=== PATIENT | male | born 1940 | race Caucasian/White ===

== ENCOUNTER 2020-05-11 13:11 | Outpatient (CLI) | payer MEDICARE, SELFPAY ==
[2020-05-11 13:34] LABS: Basophils Absolute Auto 0.1 K/mm3 (0.0-0.1); Basophils Percent Auto 0.7 % (0.2-1.2); Eosinophils Absolute Auto 0.2 K/mm3 (0-0.3); Eosinophils Percent Auto 2.7 % (0-4.4); Hematocrit 33.4 % (42.0-52.0); Hemoglobin 10.8 g/dL (14.0-18.0); Immature Granulocyte Absolute 0.03 K/mm3 (0.00-0.031); Immature Granulocyte Percent A 0.4 % (0-0.5); Lymphocytes Percent Auto 14.6 % (18.3-44.2); Mean Corpuscular HGB Conc 32.3 g/dl (32-36); Mean Corpuscular Hemoglobin 32.3 pg (26-34); Mean Platelet Volume 9.3 fl (7.4-10.4); Monocytes Absolute Auto 0.6 K/mm3 (0.1-0.6); Monocytes Percent Auto 7.4 % (2.6-8.5); Neutrophils Absolute Auto 5.6 K/mm3 (1.3-6.7); Neutrophils Percent Auto 74.2 % (45.5-73.1); Platelet Count Result 209 k/mm3 (150-375); Red Blood Count 3.34 M/mm3 (4.6-6.20); White Blood Count 7.5 K/mm3 (4.5-10.0)
[2020-05-11 13:46] LABS: Alanine Aminotransferase 47 U/L (4-50); Albumin Level 3.9 g/dL (3.5-5.1); Alkaline Phosphatase 121 U/L (38-126); Anion Gap 2 mmol/L (8-16); Aspartate Amino Transferase 58 U/L (17-59); Bilirubin,Total 0.4 mg/dL (0.2-1.3); Blood Urea Nitrogen 17 mg/dL (9-20); Calcium 8.3 mg/dL (8.4-10.2); Carbon Dioxide 30 mmol/L (22-30); Chloride 101 mmol/L (98-107); Estimated Glomerular Filt Rate > 60; Glucose 121 mg/dL (75-110); Potassium 3.5 mmol/L (3.4-5.0); Sodium 133 mmol/L (137-145)
[2020-05-11 14:17] LABS: Prostate Specific Antigen 1.1 ng/mL (< OR = 4.0)
== END 2020-05-11 13:12 | disposition home or self-care (01) ==
LOC: ANHLAB 13:17
PROVIDERS: PCP Family Medicine; Visit Provider Family Medicine
DX: E78.5 Hyperlipidemia, unspecified (principal); C80.1 Malignant (primary) neoplasm, unspecified; G63 Polyneuropathy in diseases classified elsewhere; I10 Essential (primary) hypertension; Z12.5 Encounter for screening for malignant neoplasm of prostate
CPT/HCPCS: 36415; 80048; 80076; 82607; 84153; 84443; 85025; G0103

== ENCOUNTER 2020-09-09 09:59 | Outpatient (CLI) | payer MEDICARE, SELFPAY | END 2020-09-09 10:00 | disposition home or self-care (01) | LOC: ANHCOVIDVC 09:59 | PROVIDERS: PCP Family Medicine | DX: Z23 Encounter for immunization (principal) | CPT/HCPCS: 0001A; 91300 ==

== ENCOUNTER 2020-10-06 10:00 | Outpatient (CLI) | payer MEDICARE, SELFPAY | END 2020-10-06 10:01 | disposition home or self-care (01) | LOC: ANHCOVIDVC 10:00 | PROVIDERS: PCP Family Medicine | DX: Z23 Encounter for immunization (principal) | CPT/HCPCS: 0002A; 91300 ==

== ENCOUNTER 2020-10-19 08:18 | Outpatient (RCR) | payer MEDICARE, SELFPAY ==
--- NOTE | 2020-10-19 09:41 | STOPEVAL ---
SPEECH THERAPY INITIAL EVALUATION: Thank you for referring Anthony Guallpa to [facility].? The patient is scheduled to be seen for therapy? 1x/week for 4 weeks. Please review, sign, date and return this plan of care PAUL. I agree with and certify that the following plan of care is medically necessary. Referring Physician Date Attending Provider: Luciana Soares fax: [phone] Outpatient Past Medical History Past Medical History Source of Past Medical History Patient Neurological History Hx Neurological Disorders No Significant History Cardiovascular History Hx Coronary Artery Bypass Graft Yes: 2003 Respiratory History Hx Respiratory Disorders No Significant History Gastrointestinal History Hx Appendectomy Yes: appendix cancer Hx Gastroesophageal Reflux Disease Yes: takes Nexium x1/day Genitourinary History Hx Genitourinary Disorders No Significant History Musculoskeletal History Hx Musculoskeletal Disorders No Significant History Hematological History Hx Hematological Disorders No Significant History Endocrine History Hx Endocrine Disorders No Significant History HEENT History Hx HEENT Disorders No Significant History Psychosocial History Hx Psychiatric Disorders No Significant History Pain History History of Any Previous or Ongoing No Significant History Instance of Pain Other History Hx Cancer Yes Hx Chemotherapy Yes: ongoing Evaluation Information Problem Diagnosis dysphagia Previous Treatments Previous Treatments For This Problem Had modified barium swallow at [facility]. Per pt, he has residual in throat. Prior Level of Function Activity Level (Last 3 Months) Occupation retired [employer] teacher Activity of Daily Living Ability Independent Indoor/Home Mobility Independent Community Mobility Independent Stairs Ability Independent Functional Cognition (Planning, Shopping Independent , Taking Medications) Cooking Yes Cleaning Yes Laundry Yes Shopping Yes Driving Yes Home Setting Home Type Condo/Duplex/Townhouse Living Situation With Spouse Support Available Local Family Support Mobility Assistive Devices (Used Last 3 None Months) Prior Swallow Level Prior Intake Method Oral Prior Diet Regular (Level 7 Diet) Prior Liquid Consistency Thin (Level 0 Diet) Prior Cognition/Communication Prior Communication Level No Impairment Prior Cognitive Function Able to Function Independently Prior Ability to Handle Finances Independent Bedside Swallow Evaluation General Reports Dysphagia
--- NOTE | 2020-11-17 09:05 | PCSTNOTE ---
SPEECH THERAPY DISCHARGE: Attending Provider: Luciana Soares Patient:Anthony Guallpa Date of :1940 Pt was seen for a swallow evaluation and potential treatment after a modified barium swallow at an [facility] reportedly revealed throat residue per pt. He further stated that he was told that it was mild and nothing went down the wrong pipe and my says I have a problem with swallowing . On evaluation: Pt was tested with thin liquids, pudding & applesauce, cracker, in uncontrolled amounts. No overt signs or symptoms of aspiration were exhibited; however, gurgly vocal quality was exhibited after the pudding trials. With a verbal cue to cough and dry swallow; no further vocal wetness was noted. Pt was educated re test results and recommendations for safe swallowing (eliminate any gurgly vocal quality). He was also educated on dysphagia exercises (& given written handout) which included laryngeal adduction, laryngeal elevation and tongue base retraction. Pt demonstrated and verbalized understanding. Treatment was suggested x1/week for 4 weeks but pt stated that he would return only if he had any further questions. Patient has not returned for any further treatments since 10/19/2020, therefore he will be discharged at this time. Patient had a total of 1 visit. The goals have been met. Thank you for referring this patient to [facility]. Please review, sign, date and return this discharge summary PAUL. I have been updated about the patient's current status and I agree with discharge from the above service at this time. Referring Physician Date
== END 2020-11-20 08:24 | disposition home or self-care (01) ==
LOC: ANHST 08:18
PROVIDERS: PCP Family Medicine
DX: R13.10 Dysphagia, unspecified (principal)
CPT/HCPCS: 92610

== ENCOUNTER 2021-01-06 13:52 | Outpatient (RCR) | payer MEDICARE, SELFPAY ==
--- NOTE | 2021-01-07 15:12 | STOPEVAL ---
SPEECH THERAPY EVALUATION/DISCHARGE: Thank you for referring nAthony Guallpa to [facility].? No further speech therapy is warranted at this time. Refer to findings below. Please review, sign, date and return this evaluation/discharge PAUL. I agree with and certify that the following plan of care is medically necessary. Referring Physician Date Attending Provider: PHYSICIAN NOT ON STAFF *ST Outpatient Evaluation Start: 01/06/21 14:01 Freq: Status: Active Protocol: Document 01/06/21 14:05 LINDART (Rec: 01/06/21 14:51 BECHERERT [email or web address]) Therapy Assessment Status Assessment Status Assessment Status Evaluation Outpatient Past Medical History Past Medical History Source of Past Medical History Patient Neurological History Hx Other Neurological Disorders Yes: neuropathy in hands and feet Cardiovascular History Hx Coronary Artery Bypass Graft Yes: quadruple bypass in 2003 Hx Hypercholesterolemia Yes: on meds Respiratory History Hx Respiratory Disorders No Significant History Gastrointestinal History Hx Appendectomy Yes: appendix cancer Hx Gastroesophageal Reflux Disease Yes: takes Nexium x1/day Genitourinary History Hx Genitourinary Disorders No Significant History Musculoskeletal History Hx Musculoskeletal Disorders No Significant History Hematological History Hx Hematological Disorders No Significant History Endocrine History Hx Endocrine Disorders No Significant History HEENT History Hx Dental Problems Yes: related to chemotherapy Psychosocial History Hx Psychiatric Disorders No Significant History Pain History History of Any Previous or Ongoing No Significant History Instance of Pain Other History Hx Cancer Yes Hx Chemotherapy Yes: ongoing-appendix Prior Level of Function Activity Level (Last 3 Months) Occupation retired 6th grade teacher Medications Home Meds (Include: OTC, RX, Vitamins, They started me on a mixture Herbals, Dose, Route,and Frequency) of 3 drugs for a sore throat Query Text:Home Med Entries Will No yesterday afternoon and I Longer Recall From Past Visits. Home already feel a little better. Meds Must Be Re-entered With Each Visit. It's easier for me to swallow. I swish it for 30 seconds then I swallow it and I do it 4 times a day. I can actually eat without being really irritated in my throat . Sore throat started within the last 10 days and I've never had it before. This is my off week for chemo. I get it every other week Chemo
== END 2021-01-08 15:28 | disposition home or self-care (01) ==
LOC: ANHST 13:52
PROVIDERS: PCP Family Medicine
DX: R13.19 Other dysphagia (principal)
CPT/HCPCS: 92522; 92610

== ENCOUNTER 2021-06-18 10:51 | Outpatient (CLI) | payer MEDICARE, SELFPAY ==
[2021-06-18 11:48] LABS: Hematocrit 37.2 % (42.0-52.0); Hemoglobin 11.4 g/dL (14.0-18.0); Mean Corpuscular HGB Conc 30.6 g/dl (32-36); Mean Corpuscular Hemoglobin 31.5 pg (26-34); Mean Corpuscular Volume 102.8 fl (80-100); Mean Platelet Volume 9.8 fl (7.4-10.4); Platelet Count Result 217 k/mm3 (150-375); Red Blood Count 3.62 M/mm3 (4.6-6.20); Red Cell Distribution Width 15.7 % (11.5-14.5); White Blood Count 7.9 K/mm3 (4.5-10.0)
[2021-06-18 12:01] LABS: Alanine Aminotransferase 71 U/L (4-50); Albumin Level 3.8 g/dL (3.5-5.1); Alkaline Phosphatase 123 U/L (38-126); Anion Gap 7 mmol/L (8-16); Aspartate Amino Transferase 81 U/L (17-59); Bilirubin,Total 0.6 mg/dL (0.2-1.3); Blood Urea Nitrogen 27 mg/dL (9-20); Calcium 8.9 mg/dL (8.4-10.2); Carbon Dioxide 31 mmol/L (22-30); Chloride 102 mmol/L (98-107); Cholesterol 132 mg/dL (0-200); Estimated Glomerular Filt Rate > 60; Glucose 87 mg/dL (65-110); HDL Direct 50 mg/dL; Potassium 3.9 mmol/L (3.4-5.0); Sodium 140 mmol/L (137-145); Triglycerides 125 mg/dL (<150)
[2021-06-18 12:12] LABS: LDL Cholesterol Direct 53 mg/dL
[2021-06-18 12:30] LABS: Prostate Specific Antigen 0.8 ng/mL (< OR = 4.0)
== END 2021-06-18 10:52 | disposition home or self-care (01) ==
PROVIDERS: PCP Family Medicine; Visit Provider Family Medicine
DX: I10 Essential (primary) hypertension (principal); Z12.5 Encounter for screening for malignant neoplasm of prostate; E78.2 Mixed hyperlipidemia; Z13.220 Encounter for screening for lipoid disorders
CPT/HCPCS: 36415; 80048; 80061; 80076; 84153; 84443; 85027; G0103

== ENCOUNTER 2022-06-23 07:12 | Outpatient (CLI) | payer MEDICARE, SELFPAY ==
[2022-06-23 08:11] LABS: Basophils Percent Auto 0.6 % (0.2-1.2); Eosinophils Absolute Auto 0.1 K/mm3 (0-0.3); Hematocrit 35.6 % (42.0-52.0); Hemoglobin 11.1 g/dL (14.0-18.0); Immature Granulocyte Absolute 0.01 K/mm3 (0.00-0.031); Immature Granulocyte Percent A 0.1 % (0-0.5); Lymphocytes Absolute Auto 1.52 K/mm3 (0.9-3.2); Lymphocytes Percent Auto 22.3 % (18.3-44.2); Mean Corpuscular HGB Conc 31.2 g/dl (32-36); Mean Corpuscular Hemoglobin 31.4 pg (26-34); Mean Corpuscular Volume 100.6 fl (80-100); Mean Platelet Volume 9.7 fl (7.4-10.4); Monocytes Absolute Auto 0.5 K/mm3 (0.1-0.6); Monocytes Percent Auto 7.5 % (2.6-8.5); Neutrophils Absolute Auto 4.7 K/mm3 (1.3-6.7); Neutrophils Percent Auto 68.5 % (45.5-73.1); Platelet Count Result 257 k/mm3 (150-375); Red Blood Count 3.54 M/mm3 (4.6-6.20); Red Cell Distribution Width 14.8 % (11.5-14.5); White Blood Count 6.8 K/mm3 (4.5-10.0)
[2022-06-23 08:26] LABS: Alanine Aminotransferase 47 U/L (6-50); Alkaline Phosphatase 121 U/L (38-126); Anion Gap 7 mmol/L (8-16); Aspartate Amino Transferase 60 U/L (17-59); Bilirubin,Total 0.5 mg/dL (0.2-1.3); Blood Urea Nitrogen 27 mg/dL (9-20); Calcium 8.3 mg/dL (8.4-10.2); Carbon Dioxide 28 mmol/L (22-30); Chloride 104 mmol/L (98-107); Estimated Glomerular Filt Rate 58; Glucose 92 mg/dL (65-110); Potassium 3.7 mmol/L (3.4-5.0); Sodium 139 mmol/L (137-145)
== END 2022-06-23 07:13 | disposition home or self-care (01) ==
LOC: ANHLAB 07:14
PROVIDERS: PCP Family Medicine; Visit Provider Family Medicine
DX: C18.1 Malignant neoplasm of appendix (principal); C77.2 Secondary and unspecified malignant neoplasm of intra-abdominal lymph nodes; E03.9 Hypothyroidism, unspecified; C80.1 Malignant (primary) neoplasm, unspecified; G63 Polyneuropathy in diseases classified elsewhere; R74.8 Abnormal levels of other serum enzymes
CPT/HCPCS: 36415; 80053; 82248; 82607; 84439; 84443; 85025

== ENCOUNTER 2023-01-17 20:17 | Emergency (ER) | payer MEDICARE, SELFPAY ==
[2023-01-17 20:38] VITALS: BP 137/65; PULSE 79; RESP 15; TEMP 38.5; O2SAT 97
== END 2023-01-18 00:53 | disposition left against medical advice (07) ==
PROVIDERS: PCP Family Medicine
DX: R53.1 Weakness (principal)
CPT/HCPCS: 99199